=== PATIENT | female | born 1960 | race Caucasian/White ===

== ENCOUNTER 2018-02-12 06:23 | Emergency (ER) | payer SELFPAY ==
[2018-02-12 06:40] VITALS: BP 132/81; PULSE 80; RESP 18; TEMP 97.7; O2SAT 98
--- NOTE | 2018-02-12 06:41 | EDPHY ---
H & P Time Seen by Provider: 02/12/18 06:40 HPI/ROS: HPI CHIEF COMPLAINT: "I need a blanket, I need something to eat, I need New Pants" HISTORY OF PRESENT ILLNESS: This patient 57-year-old female, she presents to the emergency room by ambulance as she states she has wet pants and she needs new pair of pants. She states she has wet pants states he wants warm blankets and something to eat and drink. She no acute medical problem. She states she does not have any pain anywhere or any acute medical problem. Past Medical History: Bipolar disorder Past Surgical History: Recent surgery Social History: Homeless, alcohol use Family History: Noncontributory ROS REVIEW OF SYSTEMS: A comprehensive 10 point review of systems is otherwise negative aside from elements mentioned in the history of present illness. Exam Constitutional nontoxic, poor hygiene, triage nursing summary reviewed, vital signs reviewed, awake/alert. Eyes normal conjunctivae and sclera, EOMI, PERRLA. HENT normal inspection, atraumatic, moist mucus membranes, no epistaxis, neck supple/ no meningismus, no raccoon eyes. Respiratory clear to auscultation bilaterally, normal breath sounds, no respiratory distress, no wheezing. Cardiovascular rate normal, regular rhythm, no murmur, no edema, distal pulses normal. Gastrointestinal soft, non-tender, no rebound, no guarding, normal bowel sounds, no distension, no pulsatile mass. Genitourinary no CVA tenderness. Musculoskeletal no midline vertebral tenderness, full range of motion, no calf swelling, no tenderness of extremities, no meningismus, good pulses, neurovascularly intact. Skin pink, warm, & dry, no rash, skin atraumatic. Neurologic awake, alert and oriented x 3, AAOx3, moves all 4 extremities equally, motor intact, sensory intact, CN II-XII intact, normal cerebellar, normal vision, normal speech. Psychiatric normal mood/affect. Heme/Lymph/Immune no lymphadenopathy. Differential Diagnosis: Includes but is not limited to in a particular order cold exposure, homeless consult abuse, dehydration, defer dry clothing Medical Decision Making: Plan for this patient will provide her with clean warm close at her request, additionally she wants something the drink kidney and then she can be discharged from the emergency she has no acute medical problem needs to be addressed. Source: Patient, EMS Allergies/Adverse Reactions: No Known Allergies Allergy (Unverified 10/14/10 17:00) Departure - Departure Disposition: Home, Routine, Self-Care Clinical Impression: Homeless Cold exposure Qualifiers: Encounter type: initial encounter Qualified Code(s): T69.9XXA - Effect of reduced temperature, unspecified, initial encounter Condition: Good Instructions: Normal Exam (ED) Referrals: Patient,NotPresent [Primary Care Provider] - As per Instructions
== END 2018-02-12 06:57 | disposition home or self-care (01) ==
LOC: EDUNIT#
DX: Z59.0 Homelessness (principal); T69.9XXA Effect of reduced temperature, unspecified, initial encounter; X31.XXXA Exposure to excessive natural cold, initial encounter